=== PATIENT | male | born 1950 | race Caucasian/White ===

== ENCOUNTER 2018-05-12 01:30 | Inpatient (IN) ==
[~2018-05-12 01:30] MED LIST: *HR* Etomidate 20 MG/10 ML AMPUL IVP ONE; *HR* Midazolam HCl 5 MG/5 ML VIAL IVP ONE
--- NOTE | 2018-05-12 02:09 | Emergency Department Note ---
Disposition Clinical Impression: Lactic acidosis, Elevated troponin I level Syncope Qualifiers: Syncope type: unspecified Qualified Code(s): R55 - Syncope and collapse Disposition: Admitted As Inpatient Condition: Fair Referrals: Silver Cerda DO [Primary Care Provider] - Forms: ED Satisfaction Letter Time of Disposition: 05:12 Syncope HPI - General Chief Complaint: ED Dizziness Stated Complaint: "Syncopal Episode/Weak/Dizzy/Dry Mouth" Time Seen by Provider: 05/12/18 01:54 Source: patient Limitations: no limitations Nursing Notes Reviewed: Yes Vital Signs Reviewed: Yes - History of Present Illness HPI Narrative: 67-year-old male history of prostate cancer, hypertension, presents after 2 episodes of syncope and near-syncope, patient states that he was at a concert in [place], he felt lightheaded, he had taken some Claritin and also drank one beer, he states that afterwards he said concert with his friend, he blacked out for several seconds, did not hit his head, but was lowered to the ground he urinated himself. He denies having chest pain or shortness of breath prior but since then he has been feeling more short of breath. He states that he is having increased dyspnea on exertion, another episode where he came out of the car to go to urinate and he felt extremely short of breath and lightheaded on the way back to [place]. Pt Subjective Complaint: loss of consciousness, collapsed Duration: second(s) Prodromal Symptoms: headache Witnessed: no Injuries Sustained Associated with Event: none Current Symptoms: lightheaded, shortness of breath - Related Data Allergies Allergy/AdvReac Type Severity Reaction Status Date / Time No Known Allergies Allergy Verified 05/12/18 01:37 All systems ED: reviewed and negative except as stated. Review of Systems: As Per HPI Constitutional: Reports: weakness. Denies: fever, chills Eyes: Denies: eye pain, eye discharge ENT ED: Denies: ear pain Cardiovascular: Denies: chest pain Respiratory: Reports: as per HPI, dyspnea Gastrointestinal: Denies: abdominal pain, nausea Genitourinary: Denies: urgency, dysuria Musculoskeletal: Denies: back pain Integumentary: Denies: rash Past Medical History - Past Medical History Attestation: Yes The following information was validated with the patient. Source: patient, old records reviewed, nursing notes reviewed Medical history: Reports: cancer, hypertension Psychiatric history: Reports: no psych history - Social History Smoking Status: Never smoker Alcohol use: Reports: occasionally Drug use: Reports: none Physical Exam Constitutional: Patient appears moderately uncomfortable Neck: normal inspection, neck is supple, no JVD Resp: normal chest inspection, CTA bilaterally, no resp distress, no wheezes/ rales/rhonchi CV: RRR, no murmurs/gallops/rubs, S1 and S2 heard Extremity: +2 bilateral radial and posterial tibial pulses, +2 pitting edema bilateral lower extremity GI: normal inspection, Soft, NTND, no peritoneal signs, no palpable abdominal aortic aneurysm Back: normal inspection, no tenderness to palpation Neuro: A&O3, no gross motor or sensory deficits bilaterally +5 copyright clerk strength and lower extremity bilaterally. MSK: normal inspection, bilateral UE and LE with normal ROM Skin: No rashes, skin warm, dry, intact - General Limitations: no limitations General appearance: alert Course Course Narrative: Patient with syncope, - Reevaluation(s) Reevaluation #1: Patient will be admitted to the hospitalist for lactic acidosis, elevated troponin, given syncope been no chest pain, will often heparinization at this time, plan is for admission for further workup. Likely needs troponins trended and syncope workup. CT head and CTA chest were unremarkable, Dr. Pizarro in stable condition at this time. Time: 05:13 Vital Signs Temperature 97.4 F L 05/12/18 01:32 Pulse Rate 87 05/12/18 01:32 Respiratory Rate 18 05/12/18 01:32 Blood Pressure 131/92 05/12/18 01:32 O2 Sat by Pulse Oximetry 98 05/12/18 01:32 Temperature 97.4 F L 05/12/18 01:32 Pulse Rate 82 05/12/18 03:58 Respiratory Rate 16 05/12/18 03:58 Blood Pressure 128/64 05/12/18 03:58 O2 Sat by Pulse Oximetry 99 05/12/18 03:58 Oxygen Delivery Oxygen Delivery Room Air Syncope - Differential Diagnosis Likely: syncope due to orthostatic hypotension, vasovagal syncope, complete atrioventricular block, pulmonary embolism, dehydration/metabolic disorder - Medical Records Medical records reviewed: Yes I reviewed the patient's medical records. - Lab Data Lab results reviewed: Yes I reviewed the patient's lab results. Result diagrams: 05/12/18 02:39 05/12/18 02:39 Lab Results 05/12/18 05/12/18 05/12/18 Range/Units 02:39 02:39 02:39 WBC 13.2 H (4.3-11.1) K/mcL RBC 5.93 H (4.19-5.50) M/mcL Hgb 20.2 H (12.9-16.9) g/dL Hct 57.9 H (37.5-50.1) % MCV 97.6 (83.0-100.0) fL MCH 34.1 H (28.0-33.3) pg MCHC 34.9 (31.6-35.5) g/dL RDW 14.4 (11.5-14.5) % Plt Count 211 (140-400) K/mcL MPV 10.8 (9.4-12.4) fL Immature Gran % 0.7 (0-4) % Seg Neutrophils % 85.4 % Lymphocytes % 10.3 % Monocytes % 3.3 % Eosinophils % 0.0 % Basophils % 0.3 % Neutrophils # 11.2 H (1.6-8.9) K/mcL Lymphocytes # 1.4 (0.6-4.6) K/mcL Monocytes # 0.4 (0.0-1.3) K/mcL Eosinophils # 0.0 (0.0-0.6) K/mcL Basophils # 0.0 (0.0-0.2) K/mcL Nucleated RBCs/100 WBC 0.2 H (0) /100 WBC D-Dimer (0-500) ng/mLFEU Sodium 131 L (136-145) mEq/L Potassium 4.9 (3.5-5.1) mEq/L Chloride 101 (98-107) mEq/L Carbon Dioxide 20 L (23-29) mEq/L BUN 25 H (8-23) mg/dL Creatinine 1.69 H (0.70-1.30) mg/dL Est GFR ( Amer) 49 L (> 60) Est GFR (Non-Af Amer) 40 L (> 60) BUN/Creatinine Ratio 15 (6-26) Glucose 252 H (70-105) mg/dL Calculated Osmolality 285 (280-300) Lactic Acid 3.3 H (0.5-2.2) mmol/L Calcium 8.1 L (8.6-10.3) mg/dL Total Bilirubin 0.6 (0.3-1.0) mg/dL AST 26 (13-39) Units/L ALT 10 (7-52) Units/L Alkaline Phosphatase 38 (34-104) Units/L Troponin I 0.21 H* (< 0.04) ng/mL B-Natriuretic Peptide (Less than 100) pg/mL Serum Total Protein 6.0 L (6.4-8.9) g/dL Albumin 2.8 L (3.5-5.7) g/dL Globulin 3.2 (2.4-3.5) g/dL Albumin/Globulin Ratio 0.9 L (1.1-2.2) 05/12/18 05/12/18 05/12/18 Range/Units 02:39 04:10 04:10 WBC (4.3-11.1) K/mcL RBC (4.19-5.50) M/mcL Hgb (12.9-16.9) g/dL Hct (37.5-50.1) % MCV (83.0-100.0) fL MCH (28.0-33.3) pg MCHC (31.6-35.5) g/dL RDW (11.5-14.5) % Plt Count (140-400) K/mcL MPV (9.4-12.4) fL Immature Gran % (0-4) % Seg Neutrophils % % Lymphocytes % % Monocytes % % Eosinophils % % Basophils % % Neutrophils # (1.6-8.9) K/mcL Lymphocytes # (0.6-4.6) K/mcL Monocytes # (0.0-1.3) K/mcL Eosinophils # (0.0-0.6) K/mcL Basophils # (0.0-0.2) K/mcL Nucleated RBCs/100 WBC (0) /100 WBC D-Dimer 1504 H (0-500) ng/mLFEU Sodium (136-145) mEq/L Potassium (3.5-5.1) mEq/L Chloride (98-107) mEq/L Carbon Dioxide (23-29) mEq/L BUN (8-23) mg/dL Creatinine (0.70-1.30) mg/dL Est GFR ( Amer) (> 60) Est GFR (Non-Af Amer) (> 60) BUN/Creatinine Ratio (6-26) Glucose (70-105) mg/dL Calculated Osmolality (280-300) Lactic Acid 2.8 H (0.5-2.2) mmol/L Calcium (8.6-10.3) mg/dL Total Bilirubin (0.3-1.0) mg/dL AST (13-39) Units/L ALT (7-52) Units/L Alkaline Phosphatase (34-104) Units/L Troponin I (< 0.04) ng/mL B-Natriuretic Peptide 33 (Less than 100) pg/mL Serum Total Protein (6.4-8.9) g/dL Albumin (3.5-5.7) g/dL Globulin (2.4-3.5) g/dL Albumin/Globulin Ratio (1.1-2.2) - Radiology Data Radiology results reviewed: Yes I reviewed the patient's radiology results. Chest X-Ray 05/12/18 01:54 IMPRESSION: Negative portable chest. D/ / Mayco Dowling MD / Mayco Dowling MD Interpreting Provider: Mayco Dowling MD Chest CTA 05/12/18 02:36 IMPRESSION: 1. No scan evidence for pulmonary embolus. 2. Scattered tiny calcified and noncalcified pulmonary nodules are probably granulomas. Fleischner criteria do not apply to patients with a known malignancy. D/ / Mayco Dowling MD / Mayco Dowling MD Interpreting Provider: Mayco Dowling MD Head CT 05/12/18 02:36 IMPRESSION: No acute intracranial abnormality. D/ / Mayco Dowling MD / Mayco Dowling MD Interpreting Provider: Mayco Dowling MD - EKG Data EKG attestation: Yes I reviewed and interpreted this EKG. EKG shows normal: sinus rhythm Rate: normal Rhythm: NSR (90 bpm [place] 132 QRS 81 QTC 372 ischemic changes and no previous EKG for comparison some mild ST depressions in lateral leads V4 through V6.) - Core Measures AMI Core Measures Followed: No Measure Exclusions: not indicated
[2018-05-12] MEDS ORDERED: Isovue-370 500 ML INFUS..BTL IV ONE (02:36)
--- NOTE | 2018-05-12 02:39 | Emergency Department Note ---
Disposition Clinical Impression: Syncope Qualifiers: Syncope type: unspecified Qualified Code(s): R55 - Syncope and collapse Disposition: Admitted As Inpatient Forms: ED Satisfaction Letter General Adult HPI - General Chief complaint: ED Dizziness Stated complaint: "Syncopal Episode/Weak/Dizzy/Dry Mouth" Time Seen by Provider: 05/12/18 01:54 Source: patient Limitations: no limitations - History of Present Illness Pain Scale: 0 - Related Data Allergies Allergy/AdvReac Type Severity Reaction Status Date / Time No Known Allergies Allergy Verified 05/12/18 01:37 Past Medical History - Past Medical History Medical history: Reports: cancer, hypertension Psychiatric history: Reports: no psych history - Social History Smoking Status: Never smoker Alcohol use: Reports: occasionally Drug use: Reports: none Physical Exam - General Limitations: no limitations General appearance: alert Course - Reevaluation(s) Reevaluation #1: Attestation note I examined this patient and my medical decision-making was reviewed with the emergency medicine resident. I agree with the documented findings, disposition and treatment plan as described except to the extent set forth below. Patient seen with emergency medicine resident Mando Crowley, Please see a copy of his note for details of the H&P, ED evaluation, management and disposition. I have independently evaluated the patient and confirmed appropriate portions of the history and physical exam. Briefly: 67-year-old male history of CHF had a syncopal event earlier this evening patient came in with a friend. She is awake and alert he has pitting edema he has bibasilar rales neurologically nonfocal and GCS 15. EKG shows no acute ischemic changes. Imaging and labs are pending. With admission anticipated. Disposition pending Time: 02:37 Vital Signs Temperature 97.4 F L 05/12/18 01:32 Pulse Rate 87 05/12/18 01:32 Respiratory Rate 18 05/12/18 01:32 Blood Pressure 131/92 05/12/18 01:32 O2 Sat by Pulse Oximetry 98 05/12/18 01:32 Temperature 97.4 F L 05/12/18 01:32 Pulse Rate 87 05/12/18 01:32 Respiratory Rate 18 05/12/18 01:32 Blood Pressure 131/92 05/12/18 01:32 O2 Sat by Pulse Oximetry 98 05/12/18 01:32 Oxygen Delivery Oxygen Delivery Room Air
[2018-05-12] MEDS ORDERED: Furosemide 40 MG/4 ML VIAL IVP ONE (02:41)
[2018-05-12] MEDS: 0.9 % Sodium Chloride 1,000 ML IVC ONE ×2 (02:43→20:00)
[2018-05-12 02:50] LABS: Basophils % 0.3 %; Hemoglobin 20.2 g/dL (12.9-16.9); Immature Granulocytes % 0.7 % (0-4); Lymphocytes # 1.4 K/mcL (0.6-4.6); Lymphocytes % 10.3 %; Mean Corpuscular HGB Conc 34.9 g/dL (31.6-35.5); Mean Corpuscular Hemoglobin 34.1 pg (28.0-33.3); Mean Corpuscular Volume 97.6 fL (83.0-100.0); Mean Platelet Volume 10.8 fL (9.4-12.4); Monocytes # 0.4 K/mcL (0.0-1.3); Monocytes % 3.3 %; Neutrophils # 11.2 K/mcL (1.6-8.9); Nucleated Red Blood Cells 0.2 /100 WBC (0); Platelet Count 211 K/mcL (140-400); Red Blood Count 5.93 M/mcL (4.19-5.50); Red Cell Distribution Width 14.4 % (11.5-14.5); Segmented Neutrophils % 85.4 %
[2018-05-12 03:03] LABS: Hematocrit 57.9 % (37.5-50.1)
[2018-05-12 03:19] LABS: Albumin 2.8 g/dL (3.5-5.7); Albumin/Globulin Ratio 0.9 (1.1-2.2); Bilirubin,Total 0.6 mg/dL (0.3-1.0); Calcium 8.1 mg/dL (8.6-10.3); Globulin 3.2 g/dL (2.4-3.5); Potassium 4.9 mEq/L (3.5-5.1); Troponin I 0.21 ng/mL (< 0.04)
[2018-05-12] MEDS ORDERED: Aspirin 325 MG TABLET PO ONE (04:30)
[2018-05-12] MEDS ORDERED: Ondansetron 4 MG/2 ML VIAL IVP ONE (05:00)
[2018-05-12] MEDS ORDERED: 0.9 % Sodium Chloride 1,000 ML IVC SCH ×4 (06:30→20:15)
[2018-05-12] MEDS ORDERED: *HR* Dextrose 50 % in Water (Syg) 50 ML SYRINGE IVP PRN (08:28)
[2018-05-12] MEDS ORDERED: Dextrose Gel 15 GM/37.5 ML TUBE PO PRN ×2 (08:28)
[2018-05-12] MEDS ORDERED: D5% in Water 1,000 ML IVC PRN (08:28)
[2018-05-12] MEDS ORDERED: Aspirin Enteric Coated 81 MG Tablet PO SCH (09:00)
[2018-05-12] MEDS ORDERED: Naloxone 0.4 MG/ML INJ IVP PRN (09:00)
[2018-05-12] MEDS ORDERED: Acetaminophen 325 MG TABLET PO PRN (09:00)
[2018-05-12] MEDS ORDERED: Ipratropium/Albuterol Neb 3 ML IH PRN (09:03)
[2018-05-12] MEDS ORDERED: *HR* Enoxaparin 40 MG/0.4 ML SYRINGE SQ SCH (09:07)
--- NOTE | 2018-05-12 09:15 | Internal Med History&Physical ---
Date of Encounter: 05/12/18 Time of Encounter: 08:47 Internal Medicine - H&P: [facility] Chief complaint: "Sweating and not feeling well" Admitted From: Emergency Dept Plans for Post Hospital Care: Home History of present illness: Mr. Jo is a 67 year old male who presented to ED this AM after a syncopal episode. He states that he [facility] [place] and on his way back home to [facility]. He states that he blacked out this AM. He felt like he was dehydrated. For last few days he has been having "profuse sweating and not feeling well." He has had some generalized fatigue, SOB, and BLE edema. He denies chest pain, fever, chills, nausea, vomiting, abdominal pain, changes in bladder, or changes in bowels. He has history of HTN and prostate cancer. He states that he has had negative stress tests in the past. He denies any respiratory or cardiac history otherwise. In the ED, he was found to have elevated troponin to 0.21. EKG showed NSR with HR 90. pBNP was WNL. Lactic acid was elevated at 3.3; repeat came down to 2.8. Creatinine was elevated to 1.69. WBC was 13.2. Hgb was elevated to 20.2. He received 2L IV NS bolus in ED. D-dimer was elevated to 1503. CXR showed no acute cardiopulmonary process. CTA chest was negative for PE. At this time, he states that SOB is improved. He still denies chest pain. He states that he feels "a little bit better" than when he came to ED. UA is pending. Past Med Surg Social Fam HX - Past Medical History Attestation: Yes The following information was validated with the patient. Source: patient Medical history: cancer, GERD, hypertension Psychiatric history: no psych history - Past Surgical History Surgical History: no surgical history Additional surgical history: Prostate CA - Social History Smoking Status: Never smoker Alcohol use: occasionally Drug use: none - Additional Family History Additional family history: No significant family history per patient. Internal Medicine - H&P: Meds Aspirin [Lo-Dose Aspirin EC] 81 mg PO DAILY 05/12/18 [History] Atenolol [Tenormin] 25 mg PO DAILY 05/12/18 [History] Omeprazole [PriLOSEC] 20 mg PO DAILY PRN 06/15/18 [History] 3 Allergy/AdvReac Type Severity Reaction Status Date / Time No Known Allergies Allergy Verified 05/12/18 01:37 All Systems PM: A 10-system review of systems was performed and is negative for pertinent findings except as documented above in the HPI. - Constitutional Vitals: Temp Pulse Resp BP Pulse Ox 97.5 F L 91 18 132/64 96 05/12/18 07:53 05/12/18 07:53 05/12/18 07:53 05/12/18 07:53 05/12/18 07:53 General appearance: Present: cooperative, A&O X 3, pleasant, no acute distress, answers questions appropriately - Head Head exam: Present: atraumatic, normal inspection, normocephalic - Eye Eye exam: Present: EOMI, PERRL. Absent: conjunctival injection, nystagmus, scleral icterus - ENT ENT exam: Present: mucous membranes moist, normal external ear exam, normal oropharynx - Neck Neck exam general surgery: Present: supple, trachea midline. Absent: lymphadenopathy, tenderness, thyromegaly - Respiratory Respiratory exam: Present: CTAB. Absent: accessory muscle use, rales, rhonchi, wheezes Additional comments: Normal WOB - Cardiovascular Cardiovascular exam: Present: RRR, +S1, +S2. Absent: diastolic murmur, gallop, rubs, systolic murmur Additional comments: Trace BLE edema - GI/Abdominal GI/Abdominal exam: Present: normal bowel sounds, soft. Absent: distended, hepatomegaly, mass, splenomegaly, tenderness - Neurological Exam Neurological exam: Present: alert, CN II-XII intact, oriented X3, no focal deficits, strengths equal and symetr throughout. Absent: motor sensory deficit , facial droop, speech deficit - Psychiatric Psychiatric exam: Present: normal affect, normal mood. Absent: agitated, anxious, depressed - Skin Skin exam: Present: dry, intact, warm. Absent: cyanosis, rash Internal Med - H&P Results - Labs CBC & Chem 7: 05/12/18 02:39 05/12/18 02:39 - Assessment and plan (1) Syncope Current Visit: Yes Status: Acute Assessment and plan: Admit inpatient with telemetry. ECHO, U/S carotids, and orthostatic vitals. PT /OT consulted. Qualifiers: Syncope type: unspecified Qualified Code(s): R55 - Syncope and collapse (2) Sepsis Current Visit: Yes Status: Acute Assessment and plan: Vitals improved after 2L NS bolus in ED. No source of infection at this time. CXR/CTA chest WNL. UA pending. Will be cautious with hydration given BLE edema and some dyspnea, which may worsen with aggressive hydration. Will add appropriate antibiotics if infection suspected. Continue telemetry. Monitor vitals closely. Qualifiers: Sepsis type: sepsis due to unspecified organism Qualified Code(s): A41.9 - Sepsis, unspecified organism (3) Elevated troponin I level Current Visit: Yes Status: Acute Assessment and plan: No chest pain at this time. EKG unremarkable. Continue telemetry. Trend troponin x 3. Consider cardiology consult for any dynamic changes in troponin. If cardiac enzymes trend down, may still benefit from stress test given subacute development of fatigue/malaise. Obtain ECHO. (4) Lactic acidosis Current Visit: Yes Status: Acute Assessment and plan: Trending down. No source of infection. Aggressively hydrated in ED; will be cautious now as per above. Continue to trend lactic acid. (5) Hyperglycemia Current Visit: Yes Status: Acute Assessment and plan: No diagnosis of DM, but has had borderline glucose readings per PCP. Start accuchecks and low dose SSI QID AC/HS. Start diabetic and cardiac diet. (6) Acute kidney injury Current Visit: Yes Status: Acute Assessment and plan: Likely secondary to dehydration. No known history of CKD. Aggressively hydrated in ED; will be cautious now as per above. Recheck BMP in AM. (7) Bilateral lower extremity edema Current Visit: Yes Status: Acute Assessment and plan: Monitor fluid status closely. Will defer further IVF. No need for diuretics at this time. ECHO as per above. (8) Dyspnea Current Visit: Yes Status: Acute Assessment and plan: CXR and CTA chest unremarkable. Oxygen saturations WNL. No signs of fluid overload on examination. Be cautious with IVF as per above. Supplemental O2 and duonebs PRN SOB. ECHO as per above. Qualifiers: Dyspnea type: dyspnea on exertion Qualified Code(s): R06.09 - Other forms of dyspnea (9) Malaise and fatigue Current Visit: Yes Status: Acute Assessment and plan: Will work up and treat acute issues and reevaluate. May benefit from stress test as per above. PT/OT consulted. (10) HTN (hypertension) Current Visit: Yes Status: Chronic Assessment and plan: Continue home medications. Qualifiers: Hypertension type: essential hypertension Qualified Code(s): I10 - Essential (primary) hypertension (11) GERD (gastroesophageal reflux disease) Current Visit: Yes Status: Chronic Assessment and plan: Continue home medications. Qualifiers: Esophagitis presence: without esophagitis Qualified Code(s): K21.9 - Gastro -esophageal reflux disease without esophagitis (12) History of prostate cancer Current Visit: Yes Status: Chronic Assessment and plan: In remission. Keep outpatient heme/onc follow up. (13) DVT prophylaxis Current Visit: Yes Status: Acute Assessment and plan: Start lovenox 40 mg SQ QD and SCDs. - Time Spent With Patient Total time spent is greater than 50% in coordination of care (as documented) at patient's floor/unit and/or counseling patient: 25 - 35 minutes
[2018-05-12 09:45] LABS: Calcium 7.4 mg/dL (8.6-10.3); Magnesium 1.9 mg/dL (1.6-2.6); Potassium 5.5 mEq/L (3.5-5.1)
[2018-05-12] MEDS: Insulin LISPRO 300 UNITS/3 ML VIAL SQ SCH ×3 (09:46→19:40)
[2018-05-12 09:49] LABS: Estimated Average Glucose 111 mg/dl; Hemoglobin A1C 5.5 %
[2018-05-12 09:50] LABS: Troponin I 0.27 ng/mL (< 0.04)
[2018-05-12] MEDS: Ondansetron 4 MG/2 ML VIAL IVP PRN ×2 (10:22→15:52)
[2018-05-12 10:38] LABS: Bilirubin,Urine Small (Negative); Blood,Urine Negative (Negative); Clarity,Urine Clear (Clear); Color,Urine Dark Yellow (Yellow); Glucose,Urine (UA) Normal (Normal); Ketones,Urine Trace mg/dL (Negative); Leukocyte Esterase,Urine Negative (Negative); Nitrite,Urine Negative (Negative); PH,Urine 5.5 pH Units (5.0-8.0); Protein,Urine Trace mg/dL (Neg-Trace); Specific Gravity,Urine > 1.030 (1.010-1.025); Urobilinogen,Urine Normal (Normal)
[2018-05-12 10:39] LABS: Bacteria,Urine None Seen per hpf (None-Few); Squamous Epithelial Cell,Urine Many per lpf (None-Few)
[2018-05-12 11:01] LABS: Hyaline Casts,Urine Few per lpf (None-Few)
[2018-05-12 13:49] LABS: Hemoglobin 21.7 g/dL (12.9-16.9); Mean Corpuscular HGB Conc 35.5 g/dL (31.6-35.5); Mean Corpuscular Hemoglobin 34.4 pg (28.0-33.3); Mean Corpuscular Volume 97.1 fL (83.0-100.0); Mean Platelet Volume 10.9 fL (9.4-12.4); Platelet Count 197 K/mcL (140-400); Red Cell Distribution Width 15.1 % (11.5-14.5)
[2018-05-12 13:51] LABS: Hematocrit 61.2 % (37.5-50.1)
[2018-05-12 13:56] LABS: Calcium 7.7 mg/dL (8.6-10.3); Potassium 5.1 mEq/L (3.5-5.1)
[2018-05-12] MEDS ORDERED: Perflutren Lipid Microsphere 1.3 ML in 0.9 % Sodium Chloride 8.7 ML IVP ONE (14:51)
--- NOTE | 2018-05-12 15:19 | Oncology Inp Consult Note ---
Date of Encounter: 05/12/18 Time of Encounter: 15:17 Assessment and Plan (1) Erythrocytosis Status: Acute Assessment and plan: Erthrocytosis with neutrophil predominant leukocytosis. 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 Do no recommend cardiac cath based on kidney function and recent contrast exposure with CTA. Proceed with Heparin gtt per ACS protocol. Start plavix 75 mg daily Start hydrea 1000 mg daily Phlebotomy with removal of 750 ml now Continue ASA US abdomen, RP US to check kidneys/spleen Please refer to Dr. Rob's attestation below for additional details. - Data of Consult Patient: new to practice Consult date: 05/12/18 Requesting Physician: Karey Andrea Primary Care Provider: Silver Cerda, - Consult Narrative Reason for consult: Erythrocytosis, Leukocytosis, Suspected P. Vera History of present illness: Mr. Jo is a 67 year old male with past medical history significant for HTN and prostate cancer. He presented to ER earlier this morning following a syncopal episode he experienced last evening. He reports increased fatigue, increased SOB and dizziness worsening over the past year. BLE edema which has been acute. SOB has acutely worsened to the point where is able to ambulate only very short distances currently. Reports headache, flushing, drenching sweats and syncopal episodes with ambulation. Weight gain of about 15 pounds over the past 2 months. He was diagnosed with prostate cancer about 5 years ago, s/p prostatectomy and 40 radiotherapy treatments. Hematology consulted for erythrocytosis/leukocytosis. Troponin 0.27. Hgb 21, Hct 61, WBC 19, neutrophil 11. He does have ARCENIO with GFR 39, Creatinine 1.7, BUN 29. No prior labs to compare to, he has annual labs drawn every Fall per his PCP Dr. Silver Cerda with [facility], will obtain records. He does not remember any abnormality on labs last Fall. He is a non smoker. Denies fever/ chills or sign of infection. Past Med Surg Social Fam HX - Past Medical History Medical history: cancer, GERD, hypertension Psychiatric history: no psych history - Past Surgical History Surgical History: no surgical history Additional surgical history: Prostate CA - Social History Smoking Status: Never smoker Alcohol use: occasionally Drug use: none Medications and Allergies Aspirin [Lo-Dose Aspirin EC] 81 mg PO DAILY 05/12/18 [History] Atenolol [Tenormin] 25 mg PO DAILY 05/12/18 [History] Omeprazole [PriLOSEC] 20 mg PO DAILY PRN 05/12/18 [History] 3 Allergy/AdvReac Type Severity Reaction Status Date / Time No Known Allergies Allergy Verified 05/12/18 01:37 Constitutional: Present: excessive sweating, fatigue, weakness, weight gain. Absent: anorexia, chills, fever(s), frequent falls, weight loss Additional comments: Flushing Eyes: Absent: blurry vision, change in vision, diplopia Nose, mouth and throat: Absent: dysphagia Cardiovascular: Present: as per HPI, dyspnea on exertion, leg edema, lightheadedness, syncope. Absent: chest pain, palpitations Respiratory: Present: as per HPI. Absent: hemoptysis Gastrointestinal: Present: as per HPI, nausea. Absent: abdominal pain, hematemesis, hematochezia, melena, vomiting Additional comments: denies dysuria or hematuria Musculoskeletal: Present: muscle weakness. Absent: numbness, tingling Integumentary: Absent: rash, wounds Neurological: Present: as per HPI, headache(s), syncope. Absent: focal weakness , memory loss Hematologic/Lymphatic: Present: as per HPI Oncology - Exam - Constitutional Vitals: Temp Pulse Resp BP Pulse Ox 97 F L 92 18 113/78 95 05/12/18 11:27 05/12/18 11:27 05/12/18 11:27 05/12/18 11:27 05/12/18 11:27 General appearance: cooperative, no acute distress, no febrile - Head Head exam: Present: atraumatic - ENT ENT exam: Present: mucous membranes moist - Respiratory Respiratory exam: Present: CTAB. Absent: respiratory distress - Cardiovascular Cardiovascular exam: Present: RRR, +S1, +S2 - GI/Abdominal GI/Abdominal exam: Present: normal bowel sounds, soft, tenderness. Absent: guarding, rebound Additional comments: diffuse mid abdominal tenderness - Extremities Exam Extremities exam: Present: pedal edema. Absent: calf tenderness Additional comments: 1-2+ pedal edema - Neurological Exam Neurological exam: Present: alert, oriented X3, no focal deficits, strengths equal and symetr throughout - Psychiatric Psychiatric exam: Present: normal affect, normal mood - Skin Skin exam: Present: dry, intact, normal color, warm Oncology - Results Labs: 3 05/12/18 05/12/18 05/12/18 12:54 12:54 10:15 WBC 19.8 H RBC 6.30 H Hgb 21.7 H D Hct 61.2 H MCV 97.1 MCH 34.4 H MCHC 35.5 RDW 15.1 H Plt Count 197 MPV 10.9 Sodium 130 L Potassium 5.1 Chloride 106 Carbon Dioxide 16 L BUN 29 H Creatinine 1.76 H Est GFR ( Amer) 47 L Est GFR (Non-Af Amer) 39 L BUN/Creatinine Ratio 16 Glucose 244 H Est Mean Plasma Glucose Hemoglobin A1c Calculated Osmolality 284 Lactic Acid Calcium 7.7 L Magnesium Troponin I Urine Color Dark Yellow Urine Clarity Clear Urine pH 5.5 Ur Specific [place] > 1.030 H Urine Protein Trace Urine Glucose (UA) Normal Urine Ketones Trace H Urine Blood Negative Urine Nitrite Negative Urine Bilirubin Small H Urine Urobilinogen Normal Ur Leukocyte Esterase Negative Urine Microscopic RBC 3-5 H Urine Microscopic WBC 5-15 H Ur Squamous Epith Cells Many H Urine Bacteria None Seen Hyaline Casts Few Ur Culture Indicated? NO 3 05/12/18 05/12/18 05/12/18 09:04 09:04 09:04 WBC RBC Hgb Hct MCV MCH MCHC RDW Plt Count MPV Sodium 130 L Potassium 5.5 H Chloride 107 Carbon Dioxide 15 L BUN 27 H Creatinine 1.46 H Est GFR ( Amer) 58 L Est GFR (Non-Af Amer) 48 L BUN/Creatinine Ratio 18 Glucose 216 H Est Mean Plasma Glucose 111 Hemoglobin A1c 5.5 Calculated Osmolality 282 Lactic Acid 1.8 Calcium 7.4 L Magnesium 1.9 Troponin I 0.27 H* Urine Color Urine Clarity Urine pH Ur Specific [place] Urine Protein Urine Glucose (UA) Urine Ketones Urine Blood Urine Nitrite Urine Bilirubin Urine Urobilinogen Ur Leukocyte Esterase Urine Microscopic RBC Urine Microscopic WBC Ur Squamous Epith Cells Urine Bacteria Hyaline Casts Ur Culture Indicated? Consult Discharge Plan - Plan Referrals: Silver Cerda, [Primary Care Provider] -
[2018-05-12] MEDS ORDERED: Hydroxyurea 500 MG CAPSULE PO SCH (16:00)
[2018-05-12] MEDS ORDERED: 0.9 % Sodium Chloride 1,000 ML ONE ×2 (16:16→19:41)
[2018-05-12] MEDS ORDERED: *HR* Heparin 5,000 UNIT/ML VIAL IVP PRN ×2 (16:18)
[2018-05-12] MEDS ORDERED: *HR* Heparin 5,000 UNIT/ML VIAL IVP ONE (16:18)
[2018-05-12] MEDS ORDERED: Heparin 25,000 UNIT/500 ML D5W 25,000 UNIT/500 ML BAG IVC SCH (16:30)
[2018-05-12 16:52] LABS: Hematocrit 54.9 % (37.5-50.1); Mean Corpuscular HGB Conc 35.2 g/dL (31.6-35.5); Mean Corpuscular Hemoglobin 34.6 pg (28.0-33.3); Mean Corpuscular Volume 98.4 fL (83.0-100.0); Mean Platelet Volume 11.1 fL (9.4-12.4); Platelet Count 220 K/mcL (140-400); Red Blood Count 5.58 M/mcL (4.19-5.50); Red Cell Distribution Width 14.8 % (11.5-14.5)
[2018-05-12 16:55] LABS: Hemoglobin 19.3 g/dL (12.9-16.9)
[2018-05-12 17:01] LABS: INR 1.2; Prothrombin Time 13.4 Seconds (9.4-12.1)
[2018-05-12 17:03] LABS: Activated Partial Thrombo Time 38.3 Seconds (26.0-36.0)
[2018-05-12 17:11] LABS: Uric Acid 9.9 mg/dL (2.3-7.6)
[2018-05-12 17:32] LABS: Immature Reticulocyte % 17.8 % (11.0-38.0); Retculocyte # 0.16 M/mcL (0.05-0.10); Reticulocyte % 2.8 % (1.6-2.8)
--- NOTE | 2018-05-12 17:43 | Cardiology Consult Note ---
Date of Encounter: 05/12/18 Time of Encounter: 17:37 Assessment and Plan (1) Elevated troponin I level Current Visit: Yes Status: Acute NSTEMI possibly secondary to Polycythemia Vera s/p phlebotomy no chest pain. Oncology okay with Heparin , will continue to follow. High risk LHC due to above with ARF and worsening function. EF 60-65% with no RWMA. Will continue to follow along. Conservative management and treatment of primary PCV. LHC carries risk of bleed and thrombosis and clotting. Discussion w patient/family: The assessment and plan as outlined above was discussed with the patient and/or family members who expressed understanding and agreement. All questions were answered. Thank you for involving us in the care of your patient. Please call with any questions. History of Present Illness Consult date: 05/12/18 Consult reason: Elevated troponins Chief complaint: Nausea History of present illness: Mr. Jo is a 67 year old male with recent onset of OB, nausea and diaphoresis. Patient found to have elevated troponins with recent mild uptrend. Patient with likely polycythemia Vera currently managed by oncology s/p phlebotomy. No current chest pain at this time but worsening MOF. Repeat labs ordered stat to rule out severe dehydration in order to consider proceeding with a LHC but Hgb elevated despite hydration. Oncology consult recommended and LHC on hold. Heparin IV and ASA due to mild elevation in trops. Initial EKG with anterolateral ST changes improved on serial EKG. This likely secondary to hydration. Past Med Surg Social Fam HX - Past Medical History Medical history: cancer, GERD, hypertension Psychiatric history: no psych history - Past Surgical History Surgical History: no surgical history Additional surgical history: Prostate CA - Social History Smoking Status: Never smoker Alcohol use: occasionally Drug use: none Medications and Allergies Aspirin [Lo-Dose Aspirin EC] 81 mg PO DAILY 05/12/18 [History] Atenolol [Tenormin] 25 mg PO DAILY 05/12/18 [History] Omeprazole [PriLOSEC] 20 mg PO DAILY PRN 05/12/18 [History] 3 Allergy/AdvReac Type Severity Reaction Status Date / Time No Known Allergies Allergy Verified 05/12/18 01:37 All Systems Review: The remainder of the systems were reviewed and are negative Physical Examination General: Conversant, No Apparent Distress HEENT: Atraumatic, Normocephaly, Mucus Membranes Moist Neck: No JVD, Normal carotid pulses Cardiac: Reg Rate and Rhythm, Normal S1 and S2, No Murmur Lungs: Normal Breath Sounds, No Wheeze, Rales, Rhonchi Neuro: Alert and responsive, No focal deficits noted Abdomen: Soft, Non-Tender Skin: No rashes noted on visualized skin Musculoskeletal: No Chest Wall Tenderness Extremities: No Clubbing, No Cyanosis, No Edema, Normal Pulses Results 05/12/18 16:37 05/12/18 12:54 Lab Results 05/12/18 05/12/18 05/12/18 09:04 12:54 12:54 WBC 19.8 H Hgb 21.7 H D Hct 61.2 H Plt Count 197 INR APTT Sodium 130 L 130 L Potassium 5.5 H 5.1 Chloride 107 106 Carbon Dioxide 15 L 16 L BUN 27 H 29 H Creatinine 1.46 H 1.76 H Glucose 216 H 244 H Calcium 7.4 L 7.7 L Magnesium 1.9 Troponin I 0.27 H* 05/12/18 05/12/18 05/12/18 16:37 16:37 16:37 WBC 20.1 H Hgb 19.3 H D Hct 54.9 H Plt Count 220 INR 1.2 APTT 38.3 H Sodium Potassium Chloride Carbon Dioxide BUN Creatinine Glucose Calcium Magnesium Troponin I 0.43 H* Consult Discharge Plan - Plan Referrals: Silver Cerda DO [Primary Care Provider] -
[2018-05-12 18:55] VITALS: BP 82/31
[2018-05-12] MEDS ORDERED: Tirofiban 0.05 MG/1 ML (BOLUS FROM BAG) IV ONE (19:52)
[2018-05-12] MEDS ORDERED: Tirofiban 12.5 MG/250ML 12.5 MG/250 ML BAG IVC SCH (20:00)
[2018-05-12 20:18] LABS: Basophils % 0.1 %; Hematocrit 54.7 % (37.5-50.1); Hemoglobin 18.7 g/dL (12.9-16.9); Immature Granulocytes % 1.2 % (0-4); Lymphocytes # 2.7 K/mcL (0.6-4.6); Lymphocytes % 11.9 %; Mean Corpuscular HGB Conc 34.2 g/dL (31.6-35.5); Mean Corpuscular Hemoglobin 34.8 pg (28.0-33.3); Mean Corpuscular Volume 101.9 fL (83.0-100.0); Mean Platelet Volume 11.4 fL (9.4-12.4); Monocytes # 0.8 K/mcL (0.0-1.3); Monocytes % 3.5 %; Neutrophils # 18.6 K/mcL (1.6-8.9); Platelet Count 209 K/mcL (140-400); Red Blood Count 5.37 M/mcL (4.19-5.50); Red Cell Distribution Width 14.9 % (11.5-14.5); Segmented Neutrophils % 83.3 %
--- NOTE | 2018-05-12 20:22 | Event Note ---
Date of Encounter: 05/12/18 Time of Encounter: 20:15 - Cardiology Event Note 67 YOM with working diagnosis currently of polycythemia vera new onset seen today in consult. Patient apparently was describing chest pain with borderline low blood pressure diaphoresis and EKG was obtained showing ST elevations anteriorly with reciprocal changes inferiorly. An STEMI alert was called immediately upon review of the EKG. Patient is high risk for a left heart catheterization known from earlier today. I discussed the case with oncology in route stating he is very high risk for clots thrombosis and possible bleeding with a left heart catheter. Patient was started on Aggrastat and upon arrival and repeat EKG patient's ST elevations resolved. Left heart catheterization was canceled due to an improved EKG and currently chest pain- free. Patient has multiple comorbidities including headaches blurry vision worsening renal function. This was discussed with the patient and he understands his risks of a possible myocardial infarction with polycythemia vera and since his ST changes have improved he agrees with canceling his left heart catheterization. We will continue to follow lab work including repeat troponins, serial EKGs will also be obtained. Nephrology has been consulted by primary team were currently at bedside as well.
[2018-05-12 20:26] LABS: Albumin 2.2 g/dL (3.5-5.7); Bilirubin,Total 0.6 mg/dL (0.3-1.0); Calcium 7.7 mg/dL (8.6-10.3); Globulin 2.3 g/dL (2.4-3.5); Potassium 4.3 mEq/L (3.5-5.1); Total Protein 4.5 g/dL (6.4-8.9)
--- NOTE | 2018-05-12 20:27 | Event Note ---
Date of Encounter: 05/12/18 Time of Encounter: 20:21 Patient started experiencing some hypotension and "worse feeling" after pheresis today. He was given IVF bolus after procedure and BP slowly trended up to systolic 100s. He was transferred to step down unit for closer monitoring. I was paged by step down nurse that patient was "not looking good. " I went to evaluate patient. He looked more pale and diaphoretic. He was clearly in distress. Repeat EKG showed ST elevation in septal reads. He did not specifically attest to chest pain, but did say that he hurt 10/10 all over. I spoke with flag signalman Dr. Garcia who thinks this is likely ischemia due to thrombus. He stated that patient is very high risk for cath procedure, and would likely worsen clotting and thrombus. He recommended starting aggrastat and increasing IVF. Cr has trended up a little. We have consulted nephrology. I have also spoken with Dr. Rob, hemetologist/oncologist, who agreed that patient is high risk for cath and stated that he is currently optimized from polycythemia perspective with IVF, heprain drip, and hydroxyurea. Dr. Garcia has evaluated patient and we subsequently discussed case. We will give another 1L NS bolus then maintenance IV NS, start aggrastat stat, and continue other treatments. A second EKG 1 hour after previous one with ST elevation was improved and reassuring. Patient is high risk for complications and we will monitor closely overnight. We will transfer to ICU. I have signed out case in person to Dr. Pizarro, the night hospitalist.
[2018-05-12 20:33] LABS: Troponin I 0.46 ng/mL (< 0.04)
[2018-05-12] MEDS ORDERED: Insulin LISPRO 300 UNITS/3 ML VIAL SQ SCH (21:00)
[2018-05-12] MEDS ORDERED: Lidocaine Jelly 11 ml Syringe TP ONE (21:27)
[2018-05-12] MEDS ORDERED: *HR* Propofol 1,000 MG/100 ML BOTTLE IVC ONE (21:46)
[2018-05-12] MEDS ORDERED: *HR* LORazepam 2 MG/ML VIAL ONE (21:46)
[2018-05-12] MEDS ORDERED: Amiodarone 150 MG in D5% in Water 100 ML IVPB ONE (22:26)
[2018-05-12] MEDS ORDERED: Amiodarone Premix 150 MG/100 ML BAG IVPB ONE (22:45)
--- NOTE | 2018-05-12 22:45 | Event Note ---
Date of Encounter: 05/12/18 Time of Encounter: 22:38 - Cardiology Event Note called after Mr. Jo walked to [facility] and arrested with Vtach and PEA. Patient with BP of 120/80 now with HR of 90 bpm. Patient has an EKG with new RBBB. Wide QRS/RBBB new in onset possible ischemia in the ostial LAD territory. Patient previously had ST elevations which resolved on arrival of the gold leaf laborer team (code STEMI called). Likely not ruptured plaque/occlusive SC but possibly thrombus/slow flow. OG reveals possible coffee ground emesis both heparin and aggrastat on hold. Cr now worsening to 2.60 from 1.69. Patient is HIGH risk for cath and likely may not have significant benefit. Oncology contacted in regards to management of Polycythemia Vera. Patient's WBC rising which may require leukopheresis.
[2018-05-12] MEDS ORDERED: Norepinephrine 4 MG in D5% in Water 250 ML IVC SCH (23:00)
--- NOTE | 2018-05-12 23:11 | Event Note ---
<Andrés Cao - Last Filed: 05/12/18 23:38> Date of Encounter: 05/12/18 Time of Encounter: 21:50 Patient presented as a transfer from the floor for STEMI, but was thought to be a poor [facility] candidate due to his polycythemia. Patient was c/o lower abdominal pain and urinary retention. 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 Patient was feeling okay and wanted to get to a bedside commode to try and use the restroom. When he got to the commode he went unresponsive. I was called to the bedside at this point and the patient was bradycardic into the low 40's, snoring respirations, pale, and clammy. He was immediately lifted from the commode and placed supine on the bed. He then had a short run of ventricular tachycardia. Shortly thereafter he did have what appeared to be seizure-like activity which lasted about 10 seconds and he became very stiff and rigid afterwards. He then began to vomit and, over concern of aspiration we rolled him onto his left side. He continued with snoring respirations and originally had a strong pulse but this began to fade became thready and 21:50, we lost a pulse and called a code. 21:50 - Code was called. ACLS protocol followed. Her original rhythm was PE. I so we began bagging the patient and gave 1 mg of epinephrine. 21:52 - PEA, repeat 1mg Epi given, R tibial I/O placed for additional access 21:54 - PEA 21:55 - 1mg Epi + 1 amp sodium bicarbonate 21:56 - PEA 21:58 - ROSC, fem/carotid doppler, rhythm - suspected atrial fibrillation 22:00 - blood pressure 207/109, heart rate 152, sat 93% 22:01 - RSI with 20mg etomidate and 5mg Versed. Propofol called for sedation after RSI. Also given 300mg Amio bolus with gtt ordered after. 22:02 - now sinus tach, rate in the 150s, 100%, blood pressure 207/169 with a map of 162 22:03 - 7.5 ETT @ 21 lips, good breath sounds and color change, OG was placed with bright red blood originally and subsequent dark brown 22:07 - CXR/KUB shows tubes in good position 22:09 - EKG shows RBBB and possible ant/lat ischemia although no acute STEMI. I spoke with Dr. Fraser, the on-call manager field who came to bedside to evaluate patient. We discussed that this was likely not from an acute thrombus, but more of a slow flow state due to his polycythemia. Decided that he was a very poor catheter candidate. Repeat EKG at 22:35 showed improving ischemic changes, but still with a right bundle branch block which is new. I spoke with the on-call oncologist who had been following the patient previously. Did think that the patient would benefit from phlebotomy , which we do not have access to for another 58 hours until Tuesday morning. He will also likely need dialysis. Which will be further complicated from his clotting and bleeding. Aggrastat was stopped, but the heparin drip was continued. He felt that the patient would likely benefit from transfer to a higher level of care, and a facility that had access to frequent phlebotomy. His white blood cell count is trending up, his elevated uric acid and LDH. Per oncology, he was started on hydroxyurea and also had 750 mL blood removed earlier today, but due to his anterior/anterior lateral ischemia is very preload dependent and became hypotensive which was why he came to the ICU in the first place. This will certainly be a delicate balance with his treatment. We consulted with the family and prior to us recommending transfer, they did request transfer to [facility]. I spoke with [facility] personally, they called us back after speaking with the multidisciplinary team and the patient was accepted to the ICU under Dr. Flood. 23:18 - [facility] now. Pushing images to [facility]. Will send documentation as well. 23:35 - [facility] is here. Patient's map has drifted down to around 60. Norepinephrine was ordered, but has not needed to be started. We backed down on his propofol and his pressure has remained stable. Heart rate has remained stable in the 90s, sats above 92-100%, and titrating FiO2 down as able. Patient currently in critical but stable condition. I personally updated the family and answered all of their questions to the best of my ability. They had no further questions or concerns at this time. <Irma Pizarro - Last Filed: 05/13/18 06:28> Date of Encounter: 05/13/18
[2018-05-12] MEDS ORDERED: Amiodarone Premix 360 MG/200 ML BAG IVC ONE (23:19)
[2018-05-12] MEDS ORDERED: Amiodarone Premix 360 MG/200 ML BAG IVC SCH (23:30)
[2018-05-12 23:35] LABS: Activated Partial Thrombo Time > 360.0 Seconds (26.0-36.0)
--- NOTE | 2018-05-12 23:48 | Procedure Note ---
Date of procedure: 05/12/18 Pre-op diagnosis: acute resp failure Post-op diagnosis: same Procedure: Intubation Procedure Note Indication: Acute respiratory failure Size of endotracheal tube: 7.5 In-line cervical immobilzation: N/A Induction Agent: 20mg Etomidate/5mg Versed Paralytic Agent: None Endotracheal intubation was performed under emergent conditions with RSI after ROSC from cardiopulmonary arrest. Direct laryngoscopy was used and proper positioning of the tube was determined by direct visualization of the tube passing through the vocal cords, chest auscultation, end tidal capnography, colorimetry, and confirmatory Chest X-Ray. The tube was secured into position. There were no apparent complications. Surgeon: Irma Pizarro Was there an obstetric assistant present: No Estimated blood loss (cc): 0 Specimen: none Pathology: none sent Condition: critical Disposition: ICU
[2018-05-13] MEDS ORDERED: *HR* Amiodarone 150 MG/3 ML VIAL IVPB ONE (00:14)
[2018-05-13] MEDS ORDERED: *HR* EPINEPHrine 1 MG/10 ML SYRINGE IVP ONE (00:14)
[2018-05-13] MEDS ORDERED: *HR* Norepinephrine 4 MG/4 ML VIAL IVC ONE (00:14)
--- NOTE | 2018-05-13 00:18 | Discharge Summary ---
<Andrés Cao - Last Filed: 05/13/18 00:15> - NOTES TO OUTPATIENT PROVIDER Notes to Outpatient Provider: Patient was transferred to [facility] in [place], [place] Orders not resulted at time of discharge: Pending orders 05/12/18 16:37 Erythropoietin Stat JAK2 (V617F) Mutation by PCR Stat 05/12/18 19:31 EKG [ECG 12 lead ECG] [ECG] Stat 05/12/18 19:49 CL Cardiac Catheterization [CL] Routine 05/12/18 19:52 CL Cardiac Catheterization [CL] Routine 05/12/18 19:59 CL Cardiac Catheterization [CL] Stat 05/12/18 20:03 Myoglobin,Urine Random or 24hr Stat 05/12/18 22:33 Occult Blood, Gastric [BF] Stat 05/12/18 23:30 Troponin I Q4H 05/13/18 03:30 Troponin I Q4H 05/13/18 07:00 US abdomen limited [US] Routine US retroperitoneal limited [US] Routine 05/13/18 07:30 Troponin I Q4H 05/13/18 11:30 Troponin I Q4H 05/13/18 15:30 Troponin I Q4H 05/13/18 19:30 Troponin I Q4H 05/13/18 23:30 Troponin I Q4H 05/14/18 03:30 Troponin I Q4H 05/14/18 07:30 Troponin I Q4H 05/14/18 11:30 Troponin I Q4H 05/14/18 15:30 Troponin I Q4H Date of Encounter: 05/13/18 Time of Encounter: 00:15 - Discharge Diagnosis (1) Cardiopulmonary arrest with successful resuscitation Priority: Primary Status: Acute Assessment and Plan: 1. Secondary to cardiac ischemia complicated by his polycythemia. We did get ROSC and after multidisciplinary consultation determined that it would be best for the patient to be transferred to a higher level of care, which was consistent with the family's wishes as well. 2. Did not initiate targeted temperature management postarrest due to his potential upper GI bleed. 3. Patient on full than later support as well as low-dose vasopressor support due to the need for sedation. 4. Patient remained hemodynamically stable with these therapies, although remained in critical condition 5. Patient to be transferred to [facility] for further management of his underlying oncologic disease. (2) Acute respiratory failure Priority: Primary Status: Acute Assessment and Plan: 1. Multifactorial, exact cause unknown but suspected to be from cardiac ischemia as documented above. 2. Patient was intubated after ROSC and placed on the vent and has had saturations 98-100%. Qualifiers: Respiratory failure complication: hypoxia Qualified Code(s): J96.01 - Acute respiratory failure with hypoxia (3) PRV (polycythemia rubra vera) Priority: Primary Status: Acute Assessment and Plan: 1. Being followed by oncology for this and is suspected to be the underlying cause of his ischemia due to a slow flow state. Patient likely will need continued phlebotomy which we are unable to provide him here until Tuesday morning, which is about 36 hours from now. Patient being transferred to the facility with these capabilities. His concomitant hemodynamic instability and cardiac ischemia further complicates his treatment modalities and will need continuous multidisciplinary intensive care. (4) Syncope Priority: Secondary Status: Acute Assessment and Plan: 1. Was the patient's initial presenting symptom and is multifactorial but likely related to hypoperfusion. Qualifiers: Syncope type: unspecified Qualified Code(s): R55 - Syncope and collapse (5) Elevated troponin I level Priority: Secondary Status: Acute Assessment and Plan: 1. Secondary to cardiac ischemia from low-flow state. [place] less likely to be from acute plaque or thrombus, which makes him a poor heart catheter candidate. He was being managed medically with Aggrastat and heparin drip as well as aspirin and Plavix. He did have a subsequent cardiac arrest and post ROSC EKG showed a new right bundle branch block, concerning for anterolateral ischemia in the ostial territory. Patient being transferred, and certainly will have his troponins trended (6) Acute kidney injury Priority: Secondary Status: Acute Assessment and Plan: 1. Worsening renal failure, multifactorial, may require dialysis. Will be addressed at transferring facility. Hospital course: Mr. Jo is a 67 year old male who presented to the ED on 05/12 for syncope. He had a complicated hospital course, which consisted of acute renal failure and possible STEMI vs NSTEMI with elevated troponin. He was evaluated by cardiology who did not feel that he was a good heart catheter candidate. Complicating this is a new diagnosis of polycythemia vera rubra. Oncology was following as well and did start him on hydroxyurea and also had a 750 mL phlebotomy, which caused hypotension and his ischemic changes on his EKG consistent with reduced preload in an already slow flow state. Patient was transferred to the ICU after this episode of hypotension on heparin and Aggrastat drips in addition to aspirin and Plavix. He subsequently went into cardiopulmonary arrest. We did get ROSC after 8 minutes of ACLS including epinephrine, bicarbonate, amiodarone. He was intubated and family requested transfer to [facility], which in conjunction with our specialty consultation felt that he would better be served at a facility that had access to phlebotomy to treat his polycythemia. Upon transfer, the patient was in critical but stable condition. His MAP was drifting down into the low 60s due to propofol for sedation. He was started on low-dose norepinephrine prior to transfer and had remained stable upon [facility]'s arrival and departure. We are suspecting that the patient will need continuous multidisciplinary intensive care and his prognosis is very poor. Discharge discussed with: family - Time Spent with Patient Total time spent providing and/or coordinating discharge services: Greater than 30 minutes - Discharge Medications Home Medications: Aspirin [Lo-Dose Aspirin EC] 81 mg PO DAILY 05/12/18 [History] Atenolol [Tenormin] 25 mg PO DAILY 05/12/18 [History] Omeprazole [PriLOSEC] 20 mg PO DAILY PRN 05/12/18 [History] Allergies/Adverse Reactions: 3 Allergy/AdvReac Type Severity Reaction Status Date / Time No Known Allergies Allergy Verified 05/12/18 01:37 Date of admission: 05/12/18 09:00 Primary care physician: Silver Cerda, Consults: 05/12/18 09:05 Consult to Occupational Therapy [CONS] Routine Comment: Evaluate, develop and implement POC Reason for Consult: Poor exercise tolerance. Please evaluate and treat. Does patient have active BEDREST order?: No Is patient medically & hemodynamically stable?: Yes Patient assessed for mobility or mobilized this visit?: No Consult to Physical Therapy [CONS] Routine Comment: Evaluate, develop and implement POC Reason for Consult: Poor exercise tolerance. Please evaluate and treat. Does patient have active BEDREST order?: No Is patient medically & hemodynamically stable?: Yes Patient assessed for mobility or mobilized this visit?: No 05/12/18 09:18 Consult for Pharmacy Education [CONS] Stat Reason for Consult: Renally dose all medications. Thanks. Call Completed: No 05/12/18 10:10 Consult to Cardiology [CONS] Routine Comment: Consulting Provider: Cardiology Evelina Reason for Consult: NSTEMI Call Completed: Yes 05/12/18 14:02 Consult to Oncology Hematology [CONS] Routine Consulting Provider: Noel Esparza Reason for Consult: Elevated H&H, WBC , evaluate for underlying cause Call Completed: Yes 05/12/18 20:10 Consult to Nephrology [CONS] Stat Consulting Provider: Kidney & HTN Spclst MARISOL Reason for Consult: worsening kidney function Time Notified: 20:00 Call Completed: Yes Discharging clinician: Irma Pizarro Anticipated date of discharge: 05/13/18 - Constitutional Vitals: Temp Pulse Resp BP Pulse Ox 97.6 F 109 21 82/31 87 05/12/18 18:54 05/12/18 18:54 05/12/18 22:10 05/12/18 18:54 05/12/18 22:55 General appearance: Present: A&O X 0. Absent: cooperative, A&O X 3 - Head Head exam: Present: atraumatic, normocephalic - Eye Eye exam: Present: PERRL, conjuntiva pink, sclera anicteric Pupils: Present: PERRL - Neck Neck exam general surgery: Present: trachea midline - Respiratory Additional comments: Apnea, ventilator initiated breaths, decreased breath sounds bilateral bases but otherwise clear - Cardiovascular Cardiovascular exam: Present: RRR - GI/Abdominal GI/Abdominal exam: Present: diminished bowel sounds, distended, soft, splenomegaly. Absent: bruit Additional comments: Mottled - exam: Present: circumcision. Absent: urethral discharge (Urethral stricture) - Extremities Exam Extremities exam: Present: mottling, pedal edema. Absent: normal capillary refill - Neurological Exam Neurological exam: Present: altered Additional comments: Patient on propofol and was not responsive - Skin Skin exam: Present: mottled, pallor - Patient Status Disposition: Transfer Other Condition: Critical Functional capacity at discharge: bed bound Overall status at discharge: patient is not back to baseline - Discharge Instructions Follow Up With: Silver Cerda DO [Primary Care Provider] - - Diet and Activity Activity: other Diet: other <Oninku,Irma O - Last Filed: 05/13/18 06:30> Orders not resulted at time of discharge: Pending orders 05/12/18 07:57 POC Glucometer Test [POC] Routine 05/12/18 11:10 POC Glucometer Test [POC] Routine 05/12/18 16:37 Erythropoietin Stat JAK2 (V617F) Mutation by PCR Stat 05/12/18 16:46 POC Glucometer Test [POC] Routine 05/12/18 19:31 EKG [ECG 12 lead ECG] [ECG] Stat 05/12/18 19:49 CL Cardiac Catheterization [CL] Routine 05/12/18 19:52 CL Cardiac Catheterization [CL] Routine 05/12/18 19:59 CL Cardiac Catheterization [CL] Stat 05/12/18 20:03 Myoglobin,Urine Random or 24hr Stat 05/12/18 22:33 Occult Blood, Gastric [BF] Stat Date of Encounter: 05/13/18 Hospital course: Mr. Jo is a 67 year old male - Time Spent with Patient Total time spent providing and/or coordinating discharge services: Date of admission: 05/12/18 09:00 Primary care physician: Silver Cerda, Consults: 05/12/18 09:05 Consult to Occupational Therapy [CONS] Routine Comment: Evaluate, develop and implement POC Reason for Consult: Poor exercise tolerance. Please evaluate and treat. Does patient have active BEDREST order?: No Is patient medically & hemodynamically stable?: Yes Patient assessed for mobility or mobilized this visit?: No Consult to Physical Therapy [CONS] Routine Comment: Evaluate, develop and implement POC Reason for Consult: Poor exercise tolerance. Please evaluate and treat. Does patient have active BEDREST order?: No Is patient medically & hemodynamically stable?: Yes Patient assessed for mobility or mobilized this visit?: No 05/12/18 09:18 Consult for Pharmacy Education [CONS] Stat Reason for Consult: Renally dose all medications. Thanks. Call Completed: No 05/12/18 10:10 Consult to Cardiology [CONS] Routine Comment: Consulting Provider: Morelia Hoyt Reason for Consult: NSTEMI Call Completed: Yes 05/12/18 14:02 Consult to Oncology Hematology [CONS] Routine Consulting Provider: Noel Esparza Reason for Consult: Elevated H&H, WBC , evaluate for underlying cause Call Completed: Yes 05/12/18 20:10 Consult to Nephrology [CONS] Stat Consulting Provider: Kidney & HTN Spclst MARISOL Reason for Consult: worsening kidney function Time Notified: 20:00 Call Completed: Yes - Constitutional Vitals: Temp Pulse Resp BP Pulse Ox 97.6 F 109 21 82/31 87 05/12/18 18:54 05/12/18 18:54 05/12/18 22:10 05/12/18 18:54 05/12/18 22:55 - Attending Attestation I performed a history and physical exam of the patient and discussed his management with the resident. I reviewed the residents note and agree with the documented findings and plan of care
--- NOTE | 2018-05-13 06:25 | Event Note ---
Date of Encounter: 05/12/18 Time of Encounter: 21:35 Late entry: I discussed with pt's , son and daughter about pt's current medical status. Pt was coded as stated in code note and so far regained a pulse. Family requesting transfer to [place]. Pt had also requested earlier to be transfer to [place] if needed. Updated family and answered their questions. Pt is a FULL code.
--- NOTE | 2018-05-13 10:45 | Electrocardiograph Report ---
[employer] 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
--- NOTE | 2018-05-15 06:50 | Electrocardiograph Report ---
[address] [place] [address] Test Date: 2018-05-12 Pat Name: Gabino Jo Department: 103 Room: [facility] Gender: M Telephone Operator: ANSHUL : 1950 Requested By: Alex Hurst Order Number: [id number] Reading MD: Prabhu Anderson Measurements Intervals [place] Rate: 94 P: 253 OR: 103 QRS: 29 QRSD: 77 T: 63 QT: 319 QTc: 371 Interpretive Statements SINUS RHYTHM Electronically Signed On 05-15-2018 6:48:18 EDT by Prabhu Anderson
--- NOTE | 2018-05-15 09:33 | Electrocardiograph Report ---
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
--- NOTE | 2018-05-15 09:33 | Electrocardiograph Report ---
[address] [place], [place] [address] Test Date: 2018-05-12 Pat Name: Gabino Jo Department: 110 Room: [facility] Gender: M Director [employer]: : 1950 Requested By: Irma Pizarro Order Number: [id number] Reading MD: Derrell Bosch Measurements Intervals [place] Rate: 81 P: 43 VT: 127 QRS: 18 QRSD: 74 T: 89 QT: 335 QTc: 373 Interpretive Statements SINUS RHYTHM LOW QRS VOLTAGE SEPTAL ST ELEVATION NOTED SEEN BY CARDIOLOGY Electronically Signed On 05-15-2018 9:31:29 EDT by Derrell Bosch
--- NOTE | 2018-05-15 09:34 | Electrocardiograph Report ---
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
--- NOTE | 2018-05-15 09:37 | Electrocardiograph Report ---
[place] [address] Test Date: 2018-05-12 Pat Name: Gabino Jo Department: 109 Room: [facility] Gender: M Tank Erector: MARIANN : 1950 Requested By: Irma Pizarro Order Number: [id number] Reading MD: Derrell Bosch Measurements Intervals [place] Rate: 95 P: 46 MO: 150 QRS: 177 QRSD: 146 T: -2 QT: 363 QTc: 415 Interpretive Statements SINUS RHYTHM RIGHT BUNDLE BRANCH BLOCK Electronically Signed On 05-15-2018 9:35:44 EDT by Derrell Bosch
== END 2018-05-13 00:15 | disposition other institution (70) | DRG 280 ==
LOC: EMEROO 01:30 → 2NENU 01:30 → 2NNU 18:13 → ICNU 22:03
PROVIDERS: ADMIT Family Medicine; ATTEND Internal Medicine